=== PATIENT | male | born 1990 | race Caucasian/White ===

== ENCOUNTER 2023-02-15 09:13 | Emergency (ER) | payer OTHER ==
[~2023-02-15] VITALS: Ht 182.9 cm; Wt 86.8 kg
[2023-02-15 09:14] VITALS: BP 129/58; TEMP 97.7; O2SAT 96
[2023-02-15] MEDS ORDERED: FLUORESCEIN OPHTH 1MG STRIP OD ONE (10:55)
[2023-02-15] MEDS ORDERED: ERYTHROMYCIN OPHTH OINT OD ONE (10:55)
[2023-02-15] MEDS ORDERED: PROPARACAINE 0.5% OPHTH SOL 15ML OD ONE (10:55)
[2023-02-15] MEDS ORDERED: ERYT5OIN25 OD (11:10)
== END 2023-02-15 11:34 | disposition home or self-care (01) ==
LOC: M ED 09:13
DX: S05.01XA Injury of conjunctiva and corneal abrasion without foreign body, right eye, initial encounter (principal); W50.0XXA Accidental hit or strike by another person, initial encounter; Y92.009 Unspecified place in unspecified non-institutional (private) residence as the place of occurrence of the external cause; Y93.89 Activity, other specified; Y99.8 Other external cause status

== ENCOUNTER → 2023-03-02 | Outpatient (CLI) | payer OTHER ==
[~2023-03-02] MED LIST: ERYT5OIN25 OD
== END ==
LOC: M RAD 07:30 → EDUNIT# 08:00
PROVIDERS: ATTEND Physician Assistant Medical
DX: M54.50 Low back pain, unspecified (principal)

== ENCOUNTER → 2023-03-22 | Outpatient (CLI) | payer OTHER | LOC: M PLAIMG 08:49 | DX: R06.02 Shortness of breath (principal) ==